=== PATIENT | female | born 1970 | race Two or more races ===

== ENCOUNTER 2020-07-10 10:39 | Outpatient (CLI) | payer SELFPAY | END 2020-07-10 23:59 | disposition home or self-care (01) | LOC: WOU 10:39 → MSC 23:59 | PROVIDERS: ATTEND Internal Medicine | DX: R79.89 Other specified abnormal findings of blood chemistry (principal); R31.9 Hematuria, unspecified; E11.9 Type 2 diabetes mellitus without complications; I10 Essential (primary) hypertension ==

== ENCOUNTER 2020-10-21 09:40 | Outpatient (CLI) | payer SELFPAY | END 2020-10-21 23:59 | disposition home or self-care (01) | LOC: MSC 09:40 | PROVIDERS: ATTEND Internal Medicine | DX: R63.4 Abnormal weight loss (principal); Z68.24 Body mass index [BMI] 24.0-24.9, adult; R53.83 Other fatigue; E11.22 Type 2 diabetes mellitus with diabetic chronic kidney disease; I12.9 Hypertensive chronic kidney disease with stage 1 through stage 4 chronic kidney disease, or unspecified chronic kidney disease; N18.30 Chronic kidney disease, stage 3 unspecified; M79.605 Pain in left leg; M79.89 Other specified soft tissue disorders; Z79.84 Long term (current) use of oral hypoglycemic drugs; Z79.899 Other long term (current) drug therapy; N28.1 Cyst of kidney, acquired ==